=== PATIENT | male | born 1980 | race Two or more races ===

== ENCOUNTER 2019-10-17 19:14 | Emergency (ER) | payer SELFPAY ==
[~2019-10-17] VITALS: Ht 167.6 cm; Wt 99.8 kg
[2019-10-17 19:27] VITALS: BP 142/91
--- NOTE | 2019-10-17 19:48 | NUR ---
XRAY AT BEDSIDE
[2019-10-17] MEDS ORDERED: ACETAMINOPHEN 325 MG TABLET PO ONE (20:00)
[2019-10-17] MEDS ORDERED: ACETAMINOPHEN ES 500 MG TABLET ONE (20:08)
--- NOTE | 2019-10-17 20:53 | NUR ---
Patient discharged to home in stable condition. Written and verbal after care instructions given. Patient verbalizes understanding of instruction and RX. Pt given copy of xray and told to follow up with MD.
== END 2019-10-17 20:54 | disposition home or self-care (01) ==
LOC: ER 19:16
DX: M79.672 Pain in left foot (principal); Z90.89 Acquired absence of other organs; Z60.2 Problems related to living alone
CPT/HCPCS: 73630-TC